=== PATIENT | female | born 1975 | race Caucasian/White ===

== ENCOUNTER 2016-10-03 18:58 | Emergency (ER) | payer MEDICAID, MEDICARE, SELFPAY ==
[~2016-10-03 18:58] MED LIST: No Home Medications; PRIL40CA PO; PROZ10CA7 PO; REME15TA PO; VITA50003 PO
--- NOTE | 2016-10-03 20:44 | EDDOCDS ---
Nurse's Notes [facility] Name: Rosita Arteaga Age: 41 yrs Sex: Female : 1975 Arrival Date: 10/03/2016 Time: 18:58 Bed PR Private MD: No Pcp Diagnosis: Other sprain of left foot;Sprain of unspecified ligament of left ankle Presentation: 10/03 19:02 Presenting complaint: Patient states: "I slipped and fell off my step stool and my jf3 whole foot turned to the left. I don't know if it broke or sprained but I'm in excruciating pain". left ankle affected. Event happened approx 1000 today. Adult Sepsis Screening: The patient does not have new or worsening altered mentation. Patient's respiratory rate is less than 22. Systolic blood pressure is greater than 100. Patient has a qSOFA score of 0- Negative Sepsis Screen. Suicide/Homicide risk assessment- the patient denies having any suicidal and/or homicidal ideations and does not present with any other emotional, behavioral or mental health complaints. Status: Patient is not a assistant food service manager or dependent. Transition of care: patient was not received from another setting of care. 19:02 Acuity: ALLYSON Level 4 3 19:02 Method Of Arrival: Walkin/Carried/Asstd jf3 Triage Assessment: 19:04 General: Appears in no apparent distress, Behavior is cooperative. Pain: Location: left jf3 ankle Pain currently is 9 out of 10 on a pain scale. Pt Declines HIV testing. 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 none - PMHx: none; - PSHx: Cesearean Section; Orthopedic Surgery; - Social history: No barriers to communication noted, The patient speaks fluent Azeri, Smoking status: Patient states was never smoker of tobacco. - Family history: Not pertinent. - : The pt / caregiver states he / she is not on anticoagulants. Home medication list is obtained from the patient. - Exposure Risk Screening:: None identified. Screenin:18 Screening information is obtained from the patient. Fall risk: At risk due to prior jf3 history of falls, The following interventions are performed due to a positive Fall Risk Screen: Fall Risk is added to Special Handling on the patient Summary Screen. A Fall Risk Bracelet was applied to the patient. Side Rails are placed in the up position. A Call Mascorro is given with instruction to call for help when getting out of bed. Fall Alert bracelet is placed on the patient. Assistance ADL's: requires no assistance with activities of daily living. 19:19 Fall Risk. jf3 19:19 Abuse/DV Screen: The patient / caregiver reports he/she is: not in a situation that jf3 causes fear, pain or injury. Nutritional screening: No deficits noted. Advance Directives: Currently, there is no health care proxy. home support is adequate. Assessment: 19:18 Adult Sepsis Screening: The patient does not have new or worsening altered mentation. jf3 Patient's respiratory rate is less than 22. Systolic blood pressure is greater than 100. Patient has a qSOFA score of 0- Negative Sepsis Screen. General: Appears in no apparent distress, Behavior is cooperative. Pain: Location: left ankle Pain currently is 9 out of 10 on a pain scale. Neurological: Level of Consciousness is awake, alert, Oriented to person, place, time. Respiratory: Airway is patent Respiratory effort is even, unlabored, Respiratory pattern is regular, symmetrical. Derm: Skin is normal. Musculoskeletal: Circulation, motion, and sensation intact Capillary refill < 3 seconds. 20:35 General: Appears in no apparent distress, comfortable, Behavior is appropriate for age, [facility] cooperative, reviewed discharge instructions with patient, patient declines offer of further assistance, placed in waiting area per pat request via wheelchair. 20:42 General: discussed at length ability to get to car from waiting area, patient states [facility] she is confident she'll be able to get home and declines offers of other assistance. Vital Signs: 19:00 BP 146 / 93; Pulse 116; Resp 18; Temp 97.1(O); Pulse Ox 100% ; Weight 153.77 kg (M); cmb Height 5 ft. 2 in. (157.48 cm); Pain 8/10; 20:25 BP 122 / 90 RA Sitting (auto/lg); Pulse 99; Resp 18; Temp 97.7(O); Pulse Ox 99% on R/A; rs6 Pain 8/10; 19:00 Body Mass Index 62.00 (153.77 kg, 157.48 cm) cmb Vitals: 19:00 Log In Time: October 03, 2016 at 18:58. cmb ED Course: 18:59 Patient visited by Tonia Yanes. cmb 18:59 Patient moved to Waiting cmb 19:00 No Pcp is Private Physician. cmb 19:01 Patient moved to Pre RCE cmb 19:04 Triage Initiated jf3 19:07 Patient moved to Triage 2 jf3 19:08 [facility] ke 19:08 Patient visited by Aki Gomez FNP. ke 19:08 Patient visited by Aki Gomez FNP. ke 19:19 The patient / caregiver is instructed regarding the plan of care and ED course. jf3 19:20 Patient visited by Jon Leach RN. jf3 19:38 Patient moved to TR1 [facility] 19:50 Patient visited by Aki Gomez FNP. ke 19:55 [facility] Payment Agreement was scanned into [employer] and attached to record. gjb 20:13 Patient moved to PR1 / 25 rs6 20:25 Patient visited by Sybil Hartley, MILY. rs6 20:25 Ishmael wrap to left ankle. knee. rs6 20:35 No IV's were initiated during this patient's visit. No procedures done that require [facility] assistance. Order Results: There are currently no results for this order. Outcome: 20:01 Discharge ordered by Provider. ke 20:35 Discharge Assessment: Patient awake, alert and oriented x 3. No cognitive and/or [facility] functional deficits noted. Patient verbalized understanding of disposition instructions. patient administered narcotics - no. The following High Risk Discharge criteria are identified: None. Discharged to home ambulatory, via wheelchair. Condition: good Condition: stable Condition: improved. Discharge instructions given to patient, Instructed on discharge instructions, follow up and referral plans. medication usage, Rest, Ice, Compression and Elevation. Demonstrated understanding of instructions, medications, Pt was receptive of discharge instructions/ teaching. Prescriptions given X 1. No special radiology studies were completed. Property :Personal belongings accompany Pt. 20:43 Patient left the ED. [facility] Signatures: Aki Gomez FNP FNP ke Hafner, Jane, RN RN cjh Tonia Yanes Rebecca, TACK DRILLER TACK DRILLER rs6 Jon Leach RN RN jf3 Katerina Draper Corrections: (The following items were deleted from the chart) 19:07 19:02 Presenting complaint: Patient states: "I slipped and fell off my step stool and jf3 my whole foot turned to the left. I don't know if it broke or sprained but I'm in excruciating pain" jf3 MTDD
--- NOTE | 2016-10-03 20:44 | EDDOCDS ---
Physician Documentation [facility] Name: Rosita Arteaga Age: 41 yrs Sex: Female : 1975 Arrival Date: 10/03/2016 Time: 18:58 Bed PR Private MD: No Pcp Disposition: 10/03/16 20:01 Discharged to Home/Self Care. Impression: Other sprain of left foot, Sprain of unspecified ligament of left ankle. - Condition is Stable. - Discharge Instructions: Elastic Bandage and RICE, Ankle Sprain, Walker Use. - Prescriptions for Ibuprofen 600 mg Oral Tablet - take 1 tablet by ORAL route every 6 hours As needed take with food; 30 tablet. Rolling Walker - Dx: Gait Disorder. Use as directed. - Medication Reconciliation, Local Pharmacy Hours form. - Follow up: Private Physician; When: Call to arrange an appointment; Reason: Recheck today's complaints, Continuance of care. - Problem is new. - Symptoms are unchanged. Historical: - Allergies: no known allergies; - Home Meds: 1. none - PMHx: none; - PSHx: Cesearean Section; Orthopedic Surgery; - Social history: No barriers to communication noted, The patient speaks fluent Yi, Smoking status: Patient states was never smoker of tobacco. - Family history: Not pertinent. - : The pt / caregiver states he / she is not on anticoagulants. Home medication list is obtained from the patient. - Exposure Risk Screening:: None identified. 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 2 in. (157.48 cm); Pain 8/10; 20:25 BP 122 / 90 RA Sitting (auto/lg); Pulse 99; Resp 18; Temp 97.7(O); Pulse Ox 99% on R/A; rs6 Pain 8/10; 19:00 Body Mass Index 62.00 (153.77 kg, 157.48 cm) cmb MDM: 19:15 Foot, Complete Ordered. EDMS 19:15 Ankle, Complete Ordered. EDMS 19:55 [facility] Payment Agreement was scanned into [employer] and attached to record. gjb 19:55 Financial registration complete. gjb 20:02 Apply Air Cast to Patient. inder. isidoro Signatures: Dispatcher [employer] EDMS Aki Gomez, ELEVATOR INSPECTOR ELEVATOR INSPECTOR Chelsea MarionRN RN ebony Jon LeachRN RN jfKaterina Gonzalez The chart was reviewed and I authenticate all verbal orders and agree with the evaluation and treatment provided.Attachments: 19:55 [facility] Payment Agreement gj MTDD
--- NOTE | 2016-10-04 07:57 | REP ---
Limited PA chest performed with dependent arms overlying the inferolateral chest bilaterally Comparison: None Cardiomediastinal silhouette is normal. No focal abnormalities are appreciated in the lung mccauley although evaluation is limited by patient positioning. Bilateral nipple shadows are projected over the lower lung mccauley bilaterally. Bones and soft tissues within normal limits Impression 1. Limited PA chest without visualized acute cardiopulmonary process Signed by Annamarie Dos Santos MD 10/04/2016 07:49 A
--- NOTE | 2016-10-04 08:22 | REP ---
Clinical: Trauma. Technique: AP, lateral, bilateral oblique views of the left foot. Findings: Lateral view demonstrates large calcaneal heal spur. No acute fracture or dislocation identified. No subcutaneous emphysema or radiodense foreign body. Ankle swelling noted. Impression: 1. Swelling about the ankle. 2. No acute fracture dislocation identified. 3. Calcaneal heal spur. Signed by Chino Emery MD 10/04/2016 08:13 A
--- NOTE | 2016-10-05 21:44 | EDDOCDS ---
Physician Documentation [facility] Name: Rosita Arteaga Age: 41 yrs Sex: Female : 1975 Arrival Date: 10/03/2016 Time: 18:58 Bed PR Private MD: No Pcp Disposition: 10/03/16 20:01 Discharged to Home/Self Care. Impression: Other sprain of left foot, Sprain of unspecified ligament of left ankle. - Condition is Stable. - Discharge Instructions: Elastic Bandage and RICE, Ankle Sprain, Walker Use. - Prescriptions for Ibuprofen 600 mg Oral Tablet - take 1 tablet by ORAL route every 6 hours As needed take with food; 30 tablet. Rolling Walker - Dx: Gait Disorder. Use as directed. - Medication Reconciliation, Local Pharmacy Hours form. - Follow up: Private Physician; When: Call to arrange an appointment; Reason: Recheck today's complaints, Continuance of care. - Problem is new. - Symptoms are unchanged. Historical: - Allergies: no known allergies; - Home Meds: 1. none - PMHx: none; - PSHx: Cesearean Section; Orthopedic Surgery; - Social history: No barriers to communication noted, The patient speaks fluent Mongolian, Smoking status: Patient states was never smoker of tobacco. - Family history: Not pertinent. - : The pt / caregiver states he / she is not on anticoagulants. Home medication list is obtained from the patient. - Exposure Risk Screening:: None identified. 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 2 in. (157.48 cm); Pain 8/10; 20:25 BP 122 / 90 RA Sitting (auto/lg); Pulse 99; Resp 18; Temp 97.7(O); Pulse Ox 99% on R/A; rs6 Pain 8/10; 19:00 Body Mass Index 62.00 (153.77 kg, 157.48 cm) cmb MDM: 19:15 Foot, Complete Ordered. EDMS 19:15 Ankle, Complete Ordered. EDMS 19:55 [facility] Payment Agreement was scanned into [employer] and attached to record. gjb 19:55 Financial registration complete. gjb 20:02 Apply Air Cast to Patient. ordered. isidoro 10/04 10:13 T-Sheet-- Draft Copy was scanned into [employer] and attached to record. gb Signatures: Dispatcher [employer] EDMS Jennifer Ferraro, Reg Reg gb Aki Gomez, COFFEE SOMMELIER COFFEE SOMMELIER Chelsea MarionRN RN [facility] Jon Leach RN RN jf3 Katerina Draper The chart was reviewed and I authenticate all verbal orders and agree with the evaluation and treatment provided.Attachments: 10/03 19:55 [facility] Payment Agreement gjb 10/04 10:13 T-Sheet-- Draft Copy gb Chart Complete MTDD
--- NOTE | 2016-10-05 21:44 | EDDOCDS ---
Physician Documentation [facility] Name: Rosita Arteaga Age: 41 yrs Sex: Female : 1975 Arrival Date: 10/03/2016 Time: 18:58 Bed PR Private MD: No Pcp Disposition: 10/03/16 20:01 Discharged to Home/Self Care. Impression: Other sprain of left foot, Sprain of unspecified ligament of left ankle. - Condition is Stable. - Discharge Instructions: Elastic Bandage and RICE, Ankle Sprain, Walker Use. - Prescriptions for Ibuprofen 600 mg Oral Tablet - take 1 tablet by ORAL route every 6 hours As needed take with food; 30 tablet. Rolling Walker - Dx: Gait Disorder. Use as directed. - Medication Reconciliation, Local Pharmacy Hours form. - Follow up: Private Physician; When: Call to arrange an appointment; Reason: Recheck today's complaints, Continuance of care. - Problem is new. - Symptoms are unchanged. Historical: - Allergies: no known allergies; - Home Meds: 1. none - PMHx: none; - PSHx: Cesearean Section; Orthopedic Surgery; - Social history: No barriers to communication noted, The patient speaks fluent Italian, Smoking status: Patient states was never smoker of tobacco. - Family history: Not pertinent. - : The pt / caregiver states he / she is not on anticoagulants. Home medication list is obtained from the patient. - Exposure Risk Screening:: None identified. 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 2 in. (157.48 cm); Pain 8/10; 20:25 BP 122 / 90 RA Sitting (auto/lg); Pulse 99; Resp 18; Temp 97.7(O); Pulse Ox 99% on R/A; rs6 Pain 8/10; 19:00 Body Mass Index 62.00 (153.77 kg, 157.48 cm) cmb MDM: 19:15 Foot, Complete Ordered. EDMS 19:15 Ankle, Complete Ordered. EDMS 19:55 [facility] Payment Agreement was scanned into [employer] and attached to record. gjb 19:55 Financial registration complete. gjb 20:02 Apply Air Cast to Patient. ordered. isidoro 10/04 10:13 T-Sheet-- Draft Copy was scanned into [employer] and attached to record. gb Signatures: Dispatcher [employer] EDMS Jennifer Ferraro, Reg Reg gb Aki Gomez, COMPUTER EDUCATION PROFESSOR COMPUTER EDUCATION PROFESSOR Chelsea MarionRN RN [facility] Jon Leach RN RN jf3 Katerina Draper The chart was reviewed and I authenticate all verbal orders and agree with the evaluation and treatment provided.Attachments: 10/03 19:55 [facility] Payment Agreement gjb 10/04 10:13 T-Sheet-- Draft Copy gb Chart Complete MTDD
--- NOTE | 2016-10-05 21:44 | EDDOCDS ---
Nurse's Notes [facility] Name: Rosita Arteaga Age: 41 yrs Sex: Female : 1975 Arrival Date: 10/03/2016 Time: 18:58 Bed PR Private MD: No Pcp Diagnosis: Other sprain of left foot;Sprain of unspecified ligament of left ankle Presentation: 10/03 19:02 Presenting complaint: Patient states: "I slipped and fell off my step stool and my jf3 whole foot turned to the left. I don't know if it broke or sprained but I'm in excruciating pain". left ankle affected. Event happened approx 1000 today. Adult Sepsis Screening: The patient does not have new or worsening altered mentation. Patient's respiratory rate is less than 22. Systolic blood pressure is greater than 100. Patient has a qSOFA score of 0- Negative Sepsis Screen. Suicide/Homicide risk assessment- the patient denies having any suicidal and/or homicidal ideations and does not present with any other emotional, behavioral or mental health complaints. Status: Patient is not a slot service specialist or dependent. Transition of care: patient was not received from another setting of care. 19:02 Acuity: ALLYSON Level 4 3 19:02 Method Of Arrival: Walkin/Carried/Asstd jf3 Triage Assessment: 19:04 General: Appears in no apparent distress, Behavior is cooperative. Pain: Location: left jf3 ankle Pain currently is 9 out of 10 on a pain scale. Pt Declines HIV testing. 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 none - PMHx: none; - PSHx: Cesearean Section; Orthopedic Surgery; - Social history: No barriers to communication noted, The patient speaks fluent Czech, Smoking status: Patient states was never smoker of tobacco. - Family history: Not pertinent. - : The pt / caregiver states he / she is not on anticoagulants. Home medication list is obtained from the patient. - Exposure Risk Screening:: None identified. Screenin:18 Screening information is obtained from the patient. Fall risk: At risk due to prior jf3 history of falls, The following interventions are performed due to a positive Fall Risk Screen: Fall Risk is added to Special Handling on the patient Summary Screen. A Fall Risk Bracelet was applied to the patient. Side Rails are placed in the up position. A Call Mascorro is given with instruction to call for help when getting out of bed. Fall Alert bracelet is placed on the patient. Assistance ADL's: requires no assistance with activities of daily living. 19:19 Fall Risk. jf3 19:19 Abuse/DV Screen: The patient / caregiver reports he/she is: not in a situation that jf3 causes fear, pain or injury. Nutritional screening: No deficits noted. Advance Directives: Currently, there is no health care proxy. home support is adequate. Assessment: 19:18 Adult Sepsis Screening: The patient does not have new or worsening altered mentation. jf3 Patient's respiratory rate is less than 22. Systolic blood pressure is greater than 100. Patient has a qSOFA score of 0- Negative Sepsis Screen. General: Appears in no apparent distress, Behavior is cooperative. Pain: Location: left ankle Pain currently is 9 out of 10 on a pain scale. Neurological: Level of Consciousness is awake, alert, Oriented to person, place, time. Respiratory: Airway is patent Respiratory effort is even, unlabored, Respiratory pattern is regular, symmetrical. Derm: Skin is normal. Musculoskeletal: Circulation, motion, and sensation intact Capillary refill < 3 seconds. 20:35 General: Appears in no apparent distress, comfortable, Behavior is appropriate for age, [facility] cooperative, reviewed discharge instructions with patient, patient declines offer of further assistance, placed in waiting area per pat request via wheelchair. 20:42 General: discussed at length ability to get to car from waiting area, patient states [facility] she is confident she'll be able to get home and declines offers of other assistance. Vital Signs: 19:00 BP 146 / 93; Pulse 116; Resp 18; Temp 97.1(O); Pulse Ox 100% ; Weight 153.77 kg (M); cmb Height 5 ft. 2 in. (157.48 cm); Pain 8/10; 20:25 BP 122 / 90 RA Sitting (auto/lg); Pulse 99; Resp 18; Temp 97.7(O); Pulse Ox 99% on R/A; rs6 Pain 8/10; 19:00 Body Mass Index 62.00 (153.77 kg, 157.48 cm) cmb Vitals: 19:00 Log In Time: October 03, 2016 at 18:58. cmb ED Course: 18:59 Patient visited by Tonia Yanes. cmb 18:59 Patient moved to Waiting cmb 19:00 No Pcp is Private Physician. cmb 19:01 Patient moved to Pre RCE cmb 19:04 Triage Initiated jf3 19:07 Patient moved to Triage 2 jf3 19:08 Aki Gomez FNP is PHCP. ke 19:08 Patient visited by Aki Gomez FNP. ke 19:08 Patient visited by Aki Gomez FNP. ke 19:19 The patient / caregiver is instructed regarding the plan of care and ED course. jf3 19:20 Patient visited by Jon Leach RN. jf3 19:38 Patient moved to TR1 [facility] 19:50 Patient visited by Aki Gomez FNP. ke 19:55 [facility] Payment Agreement was scanned into [employer] and attached to record. gjb 20:13 Patient moved to PR1 / 25 rs6 20:25 Patient visited by Sybil Hartley, MILY. rs6 20:25 Ishmael wrap to left ankle. knee. rs6 20:35 No IV's were initiated during this patient's visit. No procedures done that require [facility] assistance. 10/04 08:33 Ankle, Complete Returned. EDMS 08:33 Foot, Complete Returned. EDMS 10:13 T-Sheet-- Draft Copy was scanned into [employer] and attached to record. gb Order Results: Radiology Order: Foot, Complete Test: Foot, Complete REASON FOR EXAMINATION: Trauma; Clinical: Trauma.; ; Technique: AP, lateral, bilateral oblique views of the left foot.; ; Findings:; Lateral view demonstrates large calcaneal heal spur. No acute fracture or; dislocation identified. No subcutaneous emphysema or radiodense foreign body.; Ankle swelling noted.; ; Impression:; 1. Swelling about the ankle.; 2. No acute fracture dislocation identified.; 3. Calcaneal heal spur.; ; ; Signed by; Chino Emery MD 10/04/2016 08:13 A; Radiology Order: Ankle, Complete Test: Ankle, Complete REASON FOR EXAMINATION: Trauma; Limited PA chest performed with dependent arms overlying the inferolateral chest; bilaterally; ; Comparison: None; ; Cardiomediastinal silhouette is normal. No focal abnormalities are appreciated in; the lung mccauley although evaluation is limited by patient positioning. Bilateral; nipple shadows are projected over the lower lung mccauley bilaterally. Bones and; soft tissues within normal limits; ; Impression; 1. Limited PA chest without visualized acute cardiopulmonary process; ; ; Signed by; Annamarie Dos Santos MD 10/04/2016 07:49 A; Outcome: 10/03 20:01 Discharge ordered by Provider. isidoro 20:35 Discharge Assessment: Patient awake, alert and oriented x 3. No cognitive and/or [facility] functional deficits noted. Patient verbalized understanding of disposition instructions. patient administered narcotics - no. The following High Risk Discharge criteria are identified: None. Discharged to home ambulatory, via wheelchair. Condition: good Condition: stable Condition: improved. Discharge instructions given to patient, Instructed on discharge instructions, follow up and referral plans. medication usage, Rest, Ice, Compression and Elevation. Demonstrated understanding of instructions, medications, Pt was receptive of discharge instructions/ teaching. Prescriptions given X 1. No special radiology studies were completed. Property :Personal belongings accompany Pt. 20:43 Patient left the ED. [facility] Signatures: Dispatcher [employer] EDMS Jennifer Ferraro, Aki Salmon, GIFT PACKER GIFT PACKER Chelsea Marion RN RN [facility] Tonia Yanes Rebecca, QUALITY CONTROL SPECIALIST QUALITY CONTROL SPECIALIST rs6 Jon Leach RN RN jf3 Beck, Gabriela gjb Corrections: (The following items were deleted from the chart) 19:07 19:02 Presenting complaint: Patient states: "I slipped and fell off my step stool and jf3 my whole foot turned to the left. I don't know if it broke or sprained but I'm in excruciating pain" jf3 Chart Complete MTDD
== END 2016-10-03 20:43 | disposition home or self-care (01) ==
LOC: M ED 18:58
DX: S93.402A Sprain of unspecified ligament of left ankle, initial encounter (principal); S93.602A Unspecified sprain of left foot, initial encounter; X50.1XXA Overexertion from prolonged static or awkward postures, initial encounter; Y92.019 Unspecified place in single-family (private) house as the place of occurrence of the external cause; Y93.9 Activity, unspecified; Y99.9 Unspecified external cause status

== ENCOUNTER 2025-04-22 16:29 | Inpatient (IN) | payer SELFPAY ==
[~2025-04-22] VITALS: Ht 157.5 cm; Wt 168.0 kg
[~2025-04-22 16:29] MED LIST changes: +MIRT-88 PO; +PROZ10CA11 PO; -PROZ10CA7 PO; -REME15TA PO; -VITA50003 PO; +VITA50005 PO
[2025-04-22 19:45] LABS: BASO # 0.0 10^3/uL (0.0-0.2); BASO % 0.2 % (0.0-1.0); EOS # 0.1 10^3/uL (0.0-0.5); EOS % 0.3 % (0.0-3.0); LYMPH # 1.6 10^3/uL (1.5-5.0); LYMPH % 9.8 % (24.0-44.0); MONO # 0.8 10^3/uL (0.0-0.8); MONO % 4.8 % (2.0-8.0); NEUTROPHILS # 13.3 10^3/uL (1.5-8.5); NEUTROPHILS % 84.5 % (36.0-66.0); PLATELET COUNT, AUTOMATED 257 10^3/uL (150-450)
[2025-04-22 19:56] LABS: ERYTHROCYTE SEDIMENTATION RATE 91 mm/hr (0-30)
[2025-04-22 20:15] LABS: C REACTIVE PROTEIN QUANTITATIV 4.49 MG/DL (<1.0); CALCIUM LEVEL 9.1 MG/DL (8.5-10.1); CARBON DIOXIDE LEVEL 26 MMOL/L (20-31); CHLORIDE LEVEL 104 MMOL/L (98-107); CREATININE FOR GFR 0.66 MG/DL (0.55-1.30); GLOMERULAR FILTRATION RATE > 90.0 (>51); POTASSIUM SERUM 4.1 MMOL/L (3.5-5.1); SODIUM LEVEL 143 MMOL/L (136-145)
[2025-04-22] MEDS ORDERED: PROHANCE 279.3MG/ML 5ML VIAL As Ordered ONE (21:42)
[2025-04-22] MEDS ORDERED: PROHANCE 279.3MG/ML 15ML VIAL As Ordered ONE (21:43)
[2025-04-22] MEDS: ONDANSETRON 4MG 2ML VIAL IV PRN (22:29)
[2025-04-22] MEDS: MORPHINE 4 MG/ML 1 ML VIAL IV PRN (22:30)
[2025-04-22] MEDS ORDERED: HOME MED LIST COMPLETE! XX SCH (23:35)
[2025-04-22] MEDS ORDERED: PEPT262S PO (23:35)
[2025-04-22] MEDS ORDERED: IBUP200T46 PO (23:35)
[2025-04-23] MEDS: cefTRIAXone SOD 1 GM in DEXTROSE 5% (D5W) ADV/MINI-BAG 50 ML IV ONE (00:22)
[2025-04-23 00:25] LABS: ALT/SGPT 15 U/L (7.0-40); AST/SGOT 18 U/L (<34); MAGNESIUM LEVEL 1.9 MG/DL (1.8-2.4)
[2025-04-23 00:28] LABS: THYROXINE (T4) 10.2 UG/DL (4.5-10.9)
[2025-04-23 00:33] LABS: T UPTAKE 31.8 % (22.5-37.0)
[2025-04-23] MEDS ORDERED: ACETAMINOPHEN 325 MG TAB PO PRN (00:35)
[2025-04-23] MEDS ORDERED: NALOXONE INJ 0.4 MG/1 ML VIAL IV PRN (00:45)
[2025-04-23] MEDS ORDERED: PERCOCET 5MG/325MG TAB PO PRN (00:45)
[2025-04-23 00:50] LABS: ESTIMATED AVERAGE GLUCOSE 103.0 MG/DL (60-110)
[2025-04-23] MEDS: ACETAMINOPHEN *IV* 1,000 MG in IV 1 EA IV ONE (02:17)
[2025-04-23] MEDS: VANCOMYCIN HCL 2,000 MG, VIAL MATE ADAPTER 1 EACH in NS 500 ML IV ONE (02:18)
[2025-04-23] MEDS: TETANUS/DIPHTH/ACEL. PERTUSSIS 0.5 ML SYR IM ONE (02:19)
[2025-04-23] MEDS: CEFEPIME HCL 2 GM in DEXTROSE 5% (D5W) ADV/MINI-BAG 50 ML IV SCH (05:10)
[2025-04-23] MEDS: PERCOCET 5MG/325MG TAB PO PRN (05:11)
[2025-04-23 07:18] LABS: PLATELET COUNT, AUTOMATED 266 10^3/uL (150-450)
[2025-04-23 07:57] LABS: ALT/SGPT 12 U/L (7.0-40); AST/SGOT 16 U/L (<34); CALCIUM LEVEL 8.6 MG/DL (8.5-10.1); CARBON DIOXIDE LEVEL 26 MMOL/L (20-31); CHLORIDE LEVEL 104 MMOL/L (98-107); CREATININE FOR GFR 0.69 MG/DL (0.55-1.30); GLOMERULAR FILTRATION RATE > 90.0 (>51); MAGNESIUM LEVEL 2.1 MG/DL (1.8-2.4); POTASSIUM SERUM 3.9 MMOL/L (3.5-5.1); SODIUM LEVEL 140 MMOL/L (136-145)
[2025-04-23] MEDS ORDERED: CALCIUM CARBONATE 500 MG CHEW U/D PO PRN (08:10)
[2025-04-23] MEDS: DOCUSATE SODIUM 100 MG CAPSULE PO SCH (08:22)
[2025-04-23] MEDS: ACETAMINOPHEN 500 MG TAB PO SCH (08:29)
[2025-04-23] MEDS: KETOROLAC 30 MG/ML 1 ML VIAL IV SCH (08:29)
[2025-04-23] MEDS: PANTOPRAZOLE 40MG TAB PO SCH (08:30)
[2025-04-23] MEDS ORDERED: ENOXAPARIN 40 MG/0.4 ML SYRINGE (J1650 PER 10MG) SC SCH (09:00)
[2025-04-23] MEDS: VANCOMYCIN HCL 1,000 MG, VIAL MATE ADAPTER 1 EACH in NS 250 ML IV SCH (10:52)
[2025-04-23 16:00] VITALS: BP 125/74; TEMP 96.8; O2SAT 100
[2025-04-23] MEDS: RIVAROXABAN 10MG TAB PO SCH (17:25)
[2025-04-23 20:08] VITALS: BP 107/60; TEMP 97; O2SAT 95
[2025-04-23] MEDS: VANCOMYCIN HCL 1,250 MG, VIAL MATE ADAPTER 1 EACH in NS 250 ML IV SCH (21:50)
[2025-04-24 04:00] VITALS: BP 105/62; TEMP 97.2; O2SAT 98
[2025-04-24 06:15] LABS: BASO # 0.0 10^3/uL (0.0-0.2); BASO % 0.4 % (0.0-1.0); EOS # 0.2 10^3/uL (0.0-0.5); EOS % 2.9 % (0.0-3.0); LYMPH # 1.5 10^3/uL (1.5-5.0); LYMPH % 18.7 % (24.0-44.0); MONO # 0.5 10^3/uL (0.0-0.8); MONO % 6.0 % (2.0-8.0); NEUTROPHILS # 5.6 10^3/uL (1.5-8.5); NEUTROPHILS % 71.5 % (36.0-66.0); PLATELET COUNT, AUTOMATED 204 10^3/uL (150-450)
[2025-04-24 06:58] LABS: CALCIUM LEVEL 8.5 MG/DL (8.5-10.1); CARBON DIOXIDE LEVEL 28 MMOL/L (20-31); CHLORIDE LEVEL 104 MMOL/L (98-107); CREATININE FOR GFR 0.71 MG/DL (0.55-1.30); GLOMERULAR FILTRATION RATE > 90.0 (>51); MAGNESIUM LEVEL 2.0 MG/DL (1.8-2.4); POTASSIUM SERUM 3.7 MMOL/L (3.5-5.1); SODIUM LEVEL 143 MMOL/L (136-145)
[2025-04-24 10:07] VITALS: O2SAT 95
[2025-04-24] MEDS: VANCOMYCIN HCL 1,000 MG, VIAL MATE ADAPTER 1 EACH in NS 250 ML IV SCH (10:20)
[2025-04-24 12:00] VITALS: BP 126/75; TEMP 97.2; O2SAT 97
[2025-04-24] MEDS: MAALOX 30 ML SUSP *UDC PO PRN (16:48)
[2025-04-24 20:36] VITALS: BP 125/75; TEMP 97.3; O2SAT 99
[2025-04-25 04:00] VITALS: BP 129/81; TEMP 97; O2SAT 96
[2025-04-25 06:29] LABS: BASO # 0.0 10^3/uL (0.0-0.2); BASO % 0.2 % (0.0-1.0); EOS # 0.2 10^3/uL (0.0-0.5); EOS % 3.0 % (0.0-3.0); LYMPH # 1.4 10^3/uL (1.5-5.0); LYMPH % 26.4 % (24.0-44.0); MONO # 0.3 10^3/uL (0.0-0.8); MONO % 5.7 % (2.0-8.0); NEUTROPHILS # 3.4 10^3/uL (1.5-8.5); NEUTROPHILS % 63.9 % (36.0-66.0); PLATELET COUNT, AUTOMATED 217 10^3/uL (150-450)
[2025-04-25 06:59] LABS: CALCIUM LEVEL 8.1 MG/DL (8.5-10.1); CARBON DIOXIDE LEVEL 26 MMOL/L (20-31); CHLORIDE LEVEL 106 MMOL/L (98-107); CREATININE FOR GFR 0.66 MG/DL (0.55-1.30); GLOMERULAR FILTRATION RATE > 90.0 (>51); POTASSIUM SERUM 3.9 MMOL/L (3.5-5.1); SODIUM LEVEL 143 MMOL/L (136-145)
[2025-04-25] MEDS: MOM 30 ML SUSPENSION UDC PO PRN (09:53)
[2025-04-25 12:00] VITALS: BP 133/82; TEMP 97.7; O2SAT 97
[2025-04-25] MEDS ORDERED: VANCOMYCIN HCL 1,000 MG, VIAL MATE ADAPTER 1 EACH in NS 250 ML IV SCH (18:00)
[2025-04-25 20:03] VITALS: BP 147/82; TEMP 97; O2SAT 92
[2025-04-25] MEDS: VANCOMYCIN HCL 1,250 MG, VIAL MATE ADAPTER 1 EACH in NS 250 ML IV SCH (20:36)
[2025-04-26 03:32] VITALS: BP 139/81; TEMP 97; O2SAT 97
[2025-04-26 06:40] LABS: BASO # 0.0 10^3/uL (0.0-0.2); BASO % 0.1 % (0.0-1.0); EOS # 0.2 10^3/uL (0.0-0.5); EOS % 3.3 % (0.0-3.0); LYMPH # 1.3 10^3/uL (1.5-5.0); LYMPH % 18.1 % (24.0-44.0); MONO # 0.5 10^3/uL (0.0-0.8); MONO % 6.3 % (2.0-8.0); NEUTROPHILS # 5.3 10^3/uL (1.5-8.5); NEUTROPHILS % 71.7 % (36.0-66.0); PLATELET COUNT, AUTOMATED 200 10^3/uL (150-450)
[2025-04-26 07:04] LABS: CALCIUM LEVEL 8.3 MG/DL (8.5-10.1); CARBON DIOXIDE LEVEL 27 MMOL/L (20-31); CHLORIDE LEVEL 104 MMOL/L (98-107); CREATININE FOR GFR 0.61 MG/DL (0.55-1.30); GLOMERULAR FILTRATION RATE > 90.0 (>51); POTASSIUM SERUM 4.2 MMOL/L (3.5-5.1); SODIUM LEVEL 140 MMOL/L (136-145)
[2025-04-26 07:25] LABS: VANCOMYCIN RANDOM 15.3 UG/ML
[2025-04-26] MEDS: VANCOMYCIN HCL 750 MG, VIAL MATE ADAPTER 1 EACH in NS 250 ML IV SCH (09:31)
[2025-04-26 12:00] VITALS: BP 139/76; TEMP 97.3; O2SAT 98
[2025-04-26 19:40] VITALS: BP 136/77; TEMP 97.3; O2SAT 98
[2025-04-26] MEDS: MIRALAX *UNIT DOSE* 17 GM PACKET PO SCH (20:15)
[2025-04-26] MEDS: SENNA 8.6 MG TAB PO SCH (20:15)
[2025-04-27 03:50] VITALS: BP 133/78; TEMP 97; O2SAT 96
[2025-04-27 04:57] VITALS: TEMP 96.9
[2025-04-27 06:53] LABS: BASO # 0.0 10^3/uL (0.0-0.2); BASO % 0.5 % (0.0-1.0); EOS # 0.3 10^3/uL (0.0-0.5); EOS % 5.3 % (0.0-3.0); LYMPH # 1.8 10^3/uL (1.5-5.0); LYMPH % 29.8 % (24.0-44.0); MONO # 0.5 10^3/uL (0.0-0.8); MONO % 8.0 % (2.0-8.0); NEUTROPHILS # 3.3 10^3/uL (1.5-8.5); NEUTROPHILS % 55.9 % (36.0-66.0); PLATELET COUNT, AUTOMATED 206 10^3/uL (150-450)
[2025-04-27 07:21] LABS: CALCIUM LEVEL 8.5 MG/DL (8.5-10.1); CARBON DIOXIDE LEVEL 27 MMOL/L (20-31); CHLORIDE LEVEL 106 MMOL/L (98-107); CREATININE FOR GFR 0.60 MG/DL (0.55-1.30); GLOMERULAR FILTRATION RATE > 90.0 (>51); POTASSIUM SERUM 4.3 MMOL/L (3.5-5.1); SODIUM LEVEL 141 MMOL/L (136-145)
[2025-04-27 11:54] VITALS: BP 152/94; TEMP 97.2; O2SAT 97
[2025-04-27] MEDS ORDERED: COLA100C5 PO (13:29)
[2025-04-27] MEDS ORDERED: PANT40TA29 PO (13:29)
[2025-04-27] MEDS ORDERED: AMOX875T2 PO (13:29)
[2025-04-27] MEDS ORDERED: OXYC-517 PO (13:29)
[2025-04-27] MEDS: NYSTATIN 100,000 UNITS/GM TOPICAL PWD 15 GM TOP SCH (15:34)
== END 2025-04-27 15:50 | disposition home or self-care (01) | DRG 383 ==
LOC: M ED 16:29 → M ED INP 23:49 → M MSPAV 04-23 16:04
PROVIDERS: ADMIT Internal Medicine; ATTEND Internal Medicine
PROC: 0JCQ0ZZ Extirpation of Matter from Right Foot Subcutaneous Tissue and Fascia, Open Approach (ICD-10-PCS; principal; 2025-04-25)
DX: L03.115 Cellulitis of right lower limb (principal); Z68.44 Body mass index [BMI] 60.0-69.9, adult; E66.01 Morbid (severe) obesity due to excess calories; M72.2 Plantar fascial fibromatosis; R26.2 Difficulty in walking, not elsewhere classified; M77.31 Calcaneal spur, right foot; M19.071 Primary osteoarthritis, right ankle and foot; F41.9 Anxiety disorder, unspecified; F31.9 Bipolar disorder, unspecified; M14.671 Charcot's joint, right ankle and foot; K21.9 Gastro-esophageal reflux disease without esophagitis; B95.61 Methicillin susceptible Staphylococcus aureus infection as the cause of diseases classified elsewhere; B96.89 Other specified bacterial agents as the cause of diseases classified elsewhere; M54.50 Low back pain, unspecified; G89.29 Other chronic pain; L02.611 Cutaneous abscess of right foot; S90.851A Superficial foreign body, right foot, initial encounter; W25.XXXA Contact with sharp glass, initial encounter; Y92.9 Unspecified place or not applicable; Y93.9 Activity, unspecified; Y99.9 Unspecified external cause status; Z87.442 Personal history of urinary calculi